=== PATIENT | male | born 2000 | race Caucasian/White ===

== ENCOUNTER → 2020-03-29 17:17 | Outpatient (BNVA) | payer SELFPAY | PROVIDERS: PCP Family Medicine; Visit Provider Emergency Medicine | DX: Z20.2 Contact with and (suspected) exposure to infections with a predominantly sexual mode of transmission (principal) | CPT/HCPCS: 87491; 87591 ==

== ENCOUNTER → 2021-01-14 17:36 | Outpatient (BNVA) | payer SELFPAY | PROVIDERS: PCP Family Medicine; Visit Provider Emergency Medicine | DX: R31.21 Asymptomatic microscopic hematuria (principal) | CPT/HCPCS: 81000; 87086 ==